=== PATIENT | female | born 1930 | race Caucasian/White ===

== ENCOUNTER 2018-01-19 01:51 | Observation (INO) | payer MEDICARE, BC ==
[~2018-01-19] VITALS: Ht 167.6 cm; Wt 62.3 kg
[2018-01-19] VITALS (42 sets, daily range): BP systolic 87–130; BP diastolic 37–59
--- NOTE | ~2018-01-19 | HEMODYNAMI ---
PATIENT:LIYAH FROST MEDICAL RECORD: [id number] : 34 [id number] ADMISSION DATE: 01/19/18 Generatedon:01/19/201815:31 Patient name: LIYAH FROST Patient #: [id number] SSN: : 1930 Date of study: 01/19/2018 Page: Of Hemodynamic Procedure Report Patient Data Patient Demographics Procedure consent was obtained First Name: LIYAH Gender: Female Last Name: MARGOT : 1930 Patient #: [id number] Age: 87 year(s) Race: Unknown Additional ID: [id number] Contact details Address: [address] [place] [address] State: [place] City: [place] Zip code: [address] Past Medical History Allergies Allergen Reaction Date Comments Reported Other allergy 01/19/2018 RERE KHOURY Admission Admission Data Admission Date: 01/19/2018 Admission Time: 4:41 Room #: [facility] Lab Results Lab Result Date: 01/19/2018 Lab Result Time: 0:00 Biochemistry Name Units Result Min Max BUN mg/dl 18 --(---*)-- 7 18 Creatinine mg/dl 1.2 --(---*)-- 0.6 1.3 CBC Name Units Result Min Max Hemoglobin g/dl 10.9 *-(----)-- 13.5 17.5 Procedure Procedure Types Cath Procedure Diagnostic Procedure LHC LH w/Coronaries Sedation Charges Moderate Sedation up to 15 minutes Procedure Description Procedure Date Procedure Date: 01/19/2018 Procedure Start Time: 15:11 Procedure End Time: 15:29 Procedure Staff Name Function Chandana Hawthorne MD Performing Physician Chelly Zhang RT Monitor Hallie Rivera RT Scrub Jordi Carlisle RT Monitor Morgan Mata RN Nurse Lilian Ellis RT Scrub Procedure Data Cath Procedure Fluoroscopy Diagnostic fluoroscopy Total fluoroscopy Time: 1.6 time: 1.6 min min Diagnostic fluoroscopy Total fluoroscopy dose: 362 dose: 362 mGy mGy Contrast Material Contrast Material Type Amount (ml) Isovue 300 61 Entry Location Entry Primary Successful Side Size Upsize Upsize Entry Closure Succes sful Closure Location (Fr) 1 (Fr) 2 (Fr) Remarks Device Remarks Femoral Right 5 Fr Exoseal artery Estimated blood loss: 5 ml Diagnostic catheters Device Type Used For End Catheter Placement MULTIPACK JL 4.0 5Fr Procedure catheter MULTIPACK 3DRC 5Fr Procedure catheter MULTIPACK Pigtail 5 Fr Procedure catheter Procedure Complications No complications Procedure Medications Medication Administration Route Dosage Oxygen NC 2 l/min Lidocaine 2% added to field 20 Heparin Flush Bag added to field 2 bags (1000units/500ml NS) 0.9% NaCl I.V. 100 ml/hr Versed I.V. 1 mg Fentanyl I.V. 50 mcg Hemodynamics Rest HGB: 10.9 (g/dl) Heart Rate: 72 (bpm) Pressure Samples Time Site Value (mmHg) Purpose Heart Use Rate(bpm) 15:19 LV 92/7,16 Snapshot 63 15:21 AO 87/41(59) Pullback 63 15:21 LV 88/5,11 Pullback 63 Gradients Valve Time Site 1 Site 2 Mean SEP/DFP Peak To Heart Use (mmHg) (sec/min) Peak Rate (mmHg) (bpm) Aortic 15:21 LV AO 12 15 1 63 88/5,11 87/41(59) Calculations Valve P-P Mean Valve Index Valve Source Name Gradient Area Flow (cm2) Aortic 1 12 1 12 Snapshots Pre Cath Intra NCS Post Cath Vital Signs Time Heart Resp SPO2 etCO2 NIBP Rhythm Pain Sedation Rate (ipm) (%) (mmHg) (mmHg) Status Level (bpm) 14:54:05 64 19 99 0 126/66(81) Paced 0 (11) 10(A) , No pain 14:58:48 61 20 97 0 127/60(87) Paced 0 (11) 10(A) , No pain 15:03:33 70 17 96 0 108/53(77) Paced 0 (11) 10(A) , No pain 15:08:16 58 19 97 0 106/41(70) Paced 0 (11) 9(A) , No pain 15:12:54 60 16 98 0 90/52(65) Paced 0 (11) 9(A) , No pain 15:17:29 63 15 97 0 99/54(63) Paced 0 (11) 9(A) , No pain 15:22:05 64 16 94 0 102/49(86) Paced 0 (11) 10(A) , No pain 15:26:46 53 9 98 0 101/42(73) Paced 0 (11) 10(A) , No pain Medications Time Medication Route Dose Verified Delivered Reason Notes Effe ctiveness by by 14:53:03 Oxygen NC 2 Chandana Chandana used for l/min Christoph Hawthorne MD procedure 15:05:07 Lidocaine 2% added 20ml Chandana Chandana used for to vial Christoph Hawthorne MD procedure field 15:05:17 Heparin Flush added 2 Chandana Chandana for local Bag to bags Christoph Hawthorne MD anesthetic (1000units/500ml field NS) 15:05:59 0.9% NaCl I.V. 100 Chandana Chandana Per ml/hr Christoph Hawthorne MD physician 15:06:07 Versed I.V. 1 mg Chandana Chandana for Christoph Hawthorne MD sedation 15:06:13 Fentanyl I.V. 50 Chandana Chandana for mcg Christoph Hawthorne MD sedation Procedure Log Time Note 14:27:15 H&P Date Dictated: 01/19/2018 Within 30 days and on chart.. 14:27:48 Lab Result : Hemoglobin 10.9 g/dl 14:27:48 Lab Result : Creatinine 1.2 mg/dl 14:27:48 Lab Result : BUN 18 mg/dl 14:28:09 Time tracking: Regular hours 14:28:14 Plan of Care:Hemodynamics will remain stable., Cardiac rhythm will remain stable., Comfort level will be maintained., Respiratory function will remain adequate., Patient/ family verbilizes understanding of procedure., Procedure tolerated without complication., Recovers from procedure without complications.. 14:28:16 Signed procedure consent form obtained from patient. 14:35:51 Hallie Rivera RT(R) sent for patient. Start room use. 14:53:03 Oxygen 2 l/min NC was administered by Chandana Hawthorne MD; used for procedure; 14:53:07 Patient received from CVICU to CCL 1 Alert and oriented. Tansferred to table in Supine position. 14:53:08 Warm blankets applied, and sherwin hugger turned on for patient comfort. 14:53:09 Correct patient and procedure confirmed by team. 14:53:09 ECG and BP/O2 sat monitors applied to patient. 14:53:11 Vital chart was started 14:57:11 Baseline sample Acquired. 14:57:17 Rhythm: paced 14:57:18 Full Disclosure recording started 14:57:19 Pre-procedure instructions explained to patient. 14:57:21 Pre-op teaching completed and patient verbalized understanding. 14:57:27 Family in patients room. 14:57:28 Patient NPO since Midnight. 14:57:47 Patient allergic to Other allergyCODEINE, PCN 14:57:50 Is the patient allergic to Iodine/contrast media? No. 14:57:52 Is patient on blood thinner?Yes 14:57:56 ACC The patient was administered the following blood thiners within the last 24 hours: Xarelto 14:57:58 Patient diabetic? No. 14:58:00 Patient not . Patient is over age 55. 14:58:02 Previous problem with sedation/anesthesia? No ? 14:58:04 Snore? Yes 14:58:05 Sleep apnea? No 14:58:06 Deviated septum? No 14:58:07 Opens mouth fully? Yes 14:58:07 Sticks out tongue? Yes 14:58:10 Airway obstruction? No ? 14:58:15 Dentures? No ? 14:58:19 Pre procedure: right dorsailis pedis pulse 2+ Normal; easily identifiable; not easily obliterated 14:58:23 Patient pain scale 2/10 ?. 14:58:49 IV patent on arrival in left wrist with 0.9% NaCl at KVO. 14:59:05 PT HAS IV IN THE RIGHT WRIST WITH NITRO DRIP 14:59:13 Lab results completed and on chart. 14:59:16 Right groin area was prepped with chlora-prep and draped in sterile fashion 14:59:17 Alarms reviewed by R. N. 14:59:17 Sharps counted by scrub and verified by R.N. 15:01:28 Chelly Zhang RT(R) was relieved by Jordi Carlisle RT(R) as monitoring person 15:02:15 Physician arrived 15:02:15 --------ALL STOP TIME OUT------ 15:02:16 Final Timeout: patient, procedure, and site verified with staff and physician. All members of the team are in agreement. 15:02:19 Right groin site verified by team. 15:02:21 Physical assessment completed. ASA score P 3 - A patient with severe systemic disease as per Chandana Hawthorne MD. 15:02:28 Sedation plan: IV Moderate Sedation Medication:Versed, Fentanyl 15:05:07 Lidocaine 2% 20ml vial added to field was administered by Chandana Hawthorne MD; used for procedure; 15:05:17 Heparin Flush Bag (1000units/500ml NS) 2 bags added to field was administered by Chandana Hawthorne MD; for local anesthetic; 15:05:59 0.9% NaCl 100 ml/hr I.V. was administered by Chandana Hawthorne MD; Per physician; 15:06:07 Versed 1 mg I.V. was administered by Chandana Hawthorne MD; for sedation; 15:06:13 Fentanyl 50 mcg I.V. was administered by Chandana Hawthorne MD; for sedation; 15:07:27 Hallie iRvera RT(R) was relieved by Lilian Ellis RT(R) as scrub person 15:07:46 Zero performed for pressure channel P1 15:11:27 Procedure started. 15:11:38 Local anesthetic to right femoral artery with Lidocaine 2% by Chandana Hawthorne MD.INITIAL ACCESS ONLY 15:14:24 Use device set Femoral Dx 15:14:26 ACIST Syringe (83899) opened to sterile field. 15:14:27 Bag Decanter (2002) opened to sterile field. 15:14:27 Medline Cath Pack ([id number]) opened to sterile field. 15:14:28 ACIST Hand Control (64801) opened to sterile field. 15:14:29 ACIST Manifold (65994) opened to sterile field. 15:14:30 DIAGNOSTIC Multipack 5Fr catheter set (LH0178) opened to sterile field. 15:14:30 SHEATH 5FR Buckeye (RAO792) opened to sterile field. 15:14:31 DIAGNOSTIC WIRE .035 260cm J wire (870599) opened to sterile field. 15:14:33 PERCUTANEOUS ENTRY 19GA needle opened to sterile field. 15:14:34 Tegaderm 4 x 4 (1626W) opened to sterile field. 15:14:41 A 5 Fr sheath was inserted into the Right Femoral artery 15:14:52 A MULTIPACK JL 4.0 5Fr catheter was advanced over the wire and used for Procedure. 15:15:06 LCA angiography performed. 15:16:00 Catheter exchanged over wire. 15:16:06 A MULTIPACK 3DRC 5Fr catheter was advanced over the wire and used for Procedure. 15:17:09 RCA angiography performed. 15:17:41 Catheter exchanged over wire. 15:17:48 A MULTIPACK Pigtail 5 Fr catheter was advanced over the wire and used for Procedure. 15:19:16 LV gram done using ANG 15:19:18 Injector settings: Ml/sec: 10, Volume: 20, 15:19:39 EF : 30 % 15:21:21 Catheter removed. 15:21:38 EXOSEAL 5Fr (EX500) opened to sterile field. 15:23:57 Sheath removed intact; hemostasis achieved with Exoseal to the Right Femoral artery. 15:23:58 Procedure ended.(Physican Out) 15:24:25 Fluoroscopy time 01.60 minutes. 15:24:31 Fluoroscopy dose: 362 mGy 15:24:31 Flurop Dose total: 362 15:24:35 Contrast amount:Isovue 300 61ml. 15:24:37 Sharps counted by scrub and verified by R.N. 15:24:38 Insertion/operative site no bleeding no hematoma. 15:24:40 Post-op/insertion site Right Femoral artery dressed using a 4 x 4 and Tegaderm. 15:24:43 Post right femoral artery:stable, soft 15:24:57 Post-procedure physical assessment completed. ASA score P 3 - A patient with severe systemic disease as per Chandana Hawthorne MD. 15:25:54 Post procedure rhythm: unchanged. 15:25:57 Estimated blood loss: 5 ml 15:25:58 Post procedure instruction explained to patient.Patient verbalizes understanding. 15:25:59 Patient needs reinforcement of post procedure teaching. 15:26:51 Procedure type changed to Cath procedure, Diagnostic procedure, LHC, LHC w/Coronaries, Sedation Charges, Moderate Sedation up to 15 minutes 15:27:41 IV Extension Set opened to sterile field. 15:29:08 Procedure and supply charges have been captured, reviewed, submitted and are correct. 15:29:11 Procedure Complication : No complications 15:29:13 Vital chart was stopped 15:29:13 See physician's report for complete and final results. 15:29:15 Report given to PCU. 15:29:17 Patient transfered to PCU with Stretcher. 15:29:21 Procedure ended. 15:29:21 Full Disclosure recording stopped 15:29:30 End room use (Document Last) Device Usage Item Name Manufacture Quantity Catalog Hospital Part Current Minimal Lot# / Number Charge Number Stock Stock Serial# Code ACIST Acist 1 16065 350531 950198 311685 20 Syringe Medical (78163) Systems Inc Bag Decanter Microtek 1 2001S 861440 30012 227392 5 (2001S) Medical Inc. Medline Cath Cardinal 1 [id number] 194270 78959 546883 5 Pack Health ([id number]) ACIST Hand Acist 1 70233 320896 983340 840693 5 Control Medical (20305) Systems Inc ACIST Acist 1 02656 715606 043163 559554 5 Manifold Medical (49675) Systems Inc DIAGNOSTIC Cardinal 1 OG8305 520835 01706 655714 30 Multipack Health 5Fr catheter set (AM4877) SHEATH 5FR Terumo 1 [id number] 663583 399153 142209 40 Buckeye (BLH820) DIAGNOSTIC St [place]anto 1 059952 679144 419460 557459 30 WIRE .035 260cm J wire (992864) PERCUTANEOUS Cook Medical 1 K31887 095311 324366 5 ENTRY 19GA needle Tegaderm 4 x 3M 1 1626W 110218 604609 991704 5 4 (1626W) MULTIPACK JL Cardinal 1 648210 5 4.0 5Fr Health catheter MULTIPACK Cardinal 1 530658 5 3DRC 5Fr Health catheter MULTIPACK Cardinal 1 072644 5 Pigtail 5 Fr Health catheter EXOSEAL 5Fr Cardinal 1 EX500 471486 093219 098431 10 (EX500) Health IV Extension Hospira 1 43661-62 746701 83813 629204 5 Set Signature Audit [place] Stage Time Signature Unsigned Intra-Procedure 01/19/2018 Jordi Carlisle 3:31:13 PM RT(R) Signatures Monitor : Chelly Zhang Signature : RT Date : Time : Monitor : Jordi Carlisle RT Signature : Date : Time : [address] [place] [address]
[2018-01-19 02:45] LABS: BASOPHILS 0.1 % (0-2); EOSINOPHILS 0.1 % (0-7); HEMATOCRIT 32.4 % (36.0-48.0); HEMOGLOBIN 10.9 g/dL (12-16); IMMATURE GRANULOCYTES 0.3 % (0-5); LYMPHOCYTES 9.3 % (15-50); MCH 28.6 pg (26.0-34.0); MCHC 33.6 g/dL (31.0-37.0); MEAN PLATELET VOLUME 9.5 fL (7.4-10.4); MONOCYTES 7.2 % (2-11); PLATELET COUNT 206 10x3/uL (130-400); RBC 3.81 10x6/uL (4.00-5.40); WBC 7.8 10x3/uL (4.8-10.8)
[2018-01-19 03:00] LABS: ALBUMIN 3.6 g/dL (3.4-5.0); ALKALINE PHOSPHATASE 61 U/L (46-116); ALT (SGPT) 18 U/L (10-68); CALC OSMOLALITY 273 mosm/kg (275-300); CALCIUM 8.7 mg/dL (8.5-10.1); CARBON DIOXIDE 24.5 mmol/L (21.0-32.0); CHLORIDE - SERUM 100 mmol/L (98-107); CREATININE - SERUM 1.1 mg/dL (0.6-1.3); GLUCOSE 127 mg/dL (74-106); POTASSIUM - SERUM 3.9 mmol/L (3.5-5.1); PROTEIN - SERUM 6.6 g/dL (6.4-8.2); SODIUM 135 mmol/L (136-145); UREA NITROGEN 18 mg/dL (7-18); eGFR NON AFRICAN AMERICAN 50 mL/min (90-120)
[2018-01-19 03:19] LABS: CHOL - HDL RATIO 1.8 ratio (2.3-4.1); CHOLESTEROL, TOTAL 144 mg/dL (0-200); CKMB 4.6 U/L (0.0-3.6); CREATINE KINASE 38 UL (21-215); HDL CHOLESTEROL 82 mg/dL (32-96); LDL CHOLESTEROL 55 mg/dL (0-100); LDL-HDL RATIO 0.7 ratio (1.5-3.5); LIPASE 551 U/L (73-393); PRO BNP 5030 pg/mL (0-450); TRIGLYCERIDE 39 mg/dL (30-200)
[2018-01-19 03:20] LABS: TROPONIN-I 1.081 ng/mL (0.000-0.060)
[2018-01-19] MEDS ORDERED: MOBIC7.5 MG PO (06:39)
[2018-01-19] MEDS ORDERED: XARELTO20 MG PO (06:39)
[2018-01-19] MEDS ORDERED: ZOCOR20 MG PO (06:39)
[2018-01-19] MEDS ORDERED: NEURONTIN 300300 MG PO (06:40)
[2018-01-19] MEDS ORDERED: K-TAB10 MEQ PO (06:40)
[2018-01-19] MEDS ORDERED: COZAAR50 MG PO (06:41)
[2018-01-19] MEDS ORDERED: SYNTHROID25 MCG PO (06:41)
[2018-01-19] MEDS ORDERED: FUROSEMIDE20 MG PO (06:41)
[2018-01-19 07:32] LABS: ANION GAP 17.5 mmol/L (8-16); CALCIUM 8.7 mg/dL (8.5-10.1); CARBON DIOXIDE 21.7 mmol/L (21.0-32.0); CREATININE - SERUM 1.2 mg/dL (0.6-1.3); POTASSIUM - SERUM 4.2 mmol/L (3.5-5.1)
[2018-01-19 09:31] LABS: BASOPHILS 0 % (0-2); EOSINOPHILS 0 % (0-7); HEMATOCRIT 31.4 % (36.0-48.0); HEMOGLOBIN 10.1 g/dL (12-16); LYMPHOCYTES 15.2 % (15-50); MCH 27.5 pg (26.0-34.0); MCHC 32.2 g/dL (31.0-37.0); MCV 85.6 fL (80.0-100.0); MEAN PLATELET VOLUME 9.9 fL (7.4-10.4); MONOCYTES 9.8 % (2-11); PLATELET COUNT 214 10x3/uL (130-400); RBC 3.67 10x6/uL (4.00-5.40); RDW 14.2 % (11.5-14.5)
[2018-01-19 09:42] LABS: WBC 5.5 10x3/uL (4.8-10.8)
[2018-01-20] VITALS (16 sets, daily range): BP systolic 98–123; BP diastolic 49–74; Ht 167.6 cm; Wt 62.3 kg
== END 2018-01-20 15:07 | disposition home or self-care (01) ==
LOC: D.ER 01:51 → D.EDHOLD 04:41 → OBSVTIME 04:41 → D.CVICU 04:41
PROVIDERS: Family Medicine; Internal Medicine Cardiovascular Disease
DX: I21.4 Non-ST elevation (NSTEMI) myocardial infarction (principal); I48.91 Unspecified atrial fibrillation; Z95.0 Presence of cardiac pacemaker; E11.9 Type 2 diabetes mellitus without complications; I10 Essential (primary) hypertension; I25.110 Atherosclerotic heart disease of native coronary artery with unstable angina pectoris; Z01.812 Encounter for preprocedural laboratory examination